=== PATIENT | male | born 1950 | race African-American/Black ===

== ENCOUNTER 2017-07-07 14:14 | Inpatient (IN) | payer MEDICARE, MEDICAID ==
[~2017-07-07] VITALS: Ht 190.5 cm; Wt 91.8 kg
[2017-07-07] MEDS ORDERED: ALBUTEROL (0.083%) 2.5MG/3ML NEB HHN STA (15:32)
[2017-07-07] MEDS ORDERED: IPRATROPIUM BROMIDE (0.02%) 0.5MG/2.5ML NEB HHN STA (15:32)
[2017-07-07] MEDS ORDERED: IPRATROPIUM/ALBUTEROL 0.5-3(2.5)MG/3ML NEB ONE (15:47)
[2017-07-07] MEDS ORDERED: ALBUTEROL (0.5%) 2.5MG/0.5ML NEB HHN ONE (16:00)
[2017-07-07 16:05] LABS: BASOPHILS % 0.7 % (0.0-2.0); EOSINOPHILS % 0.8 % (0.0-5.0); HEMATOCRIT. 39.9 % (42.0-52.0); HEMOGLOBIN. 12.3 g/dL (14.0-18.0); LYMPHOCYTES % 21.6 % (20.0-50.0); MEAN CORPUSCULAR HEMOGLOBIN 21.5 pg (28.0-32.0); MEAN CORPUSCULAR VOLUME 69.6 fL (80.0-94.0); MEAN PLATELET VOLUME 11.4 fl (7.4-10.4); MONOCYTES % 6.9 % (2.0-8.0); PLATELET 129 x1000/uL (130-400); RED BLOOD CELL COUNT 5.73 mill/uL (4.7-6.1); RED CELL DISTRIBUTION WIDTH 16.1 % (11.6-14.6)
[2017-07-07 16:09] LABS: INR 1.1
[2017-07-07] MEDS ORDERED: METHYLPREDNISOLONE SOD SUCC 125 MG/2 ML VIAL IV STA (16:10)
[2017-07-07 16:24] LABS: CARBON DIOXIDE 22 mEq/L (21-32); CHLORIDE 113 mEq/L (98-107)
[2017-07-07 16:30] LABS: TROPONIN I 0.81 ng/mL (0.00-0.04)
[2017-07-07 17:16] LABS: PLATELET ESTIMATE NORMAL
[2017-07-07] MEDS ORDERED: ONDANSETRON HCL 4MG/2ML VIAL IV PRN (18:00)
[2017-07-07] MEDS ORDERED: IPRATROPIUM/ALBUTEROL 0.5-3(2.5)MG/3ML NEB INH PRN (18:00)
[2017-07-07] MEDS ORDERED: MORPHINE SULFATE 2 MG/ML CPJ (NOT FOR IM USE) IV PRN (18:00)
[2017-07-07] MEDS ORDERED: ACETAMINOPHEN 325MG TABLET PO PRN (18:00)
[2017-07-07] MEDS ORDERED: LORAZEPAM 2MG/ML CPJ IV PRN (18:00)
[2017-07-07] MEDS ORDERED: ASPIRIN 325MG EC TABLET PO ONE (18:15)
[2017-07-07] MEDS: CLONIDINE 0.1MG TABLET PO PRN ×2 (18:18→23:28)
[2017-07-07 19:28] VITALS: BP 161/127
[2017-07-07 19:57] VITALS: BP 159/115
[2017-07-07] MEDS: FERROUS SULFATE 325MG TABLET PO SCH (20:04)
[2017-07-07] MEDS: THIAMINE HCL 100MG TABLET PO SCH (20:04)
[2017-07-07] MEDS: FUROSEMIDE 40MG/4ML VIAL IV SCH (20:04)
[2017-07-07] MEDS: ENOXAPARIN 40MG/0.4ML SYR SUBCUT SCH (20:05)
[2017-07-07] MEDS: CEFTRIAXONE 1 G PREMIX 50 ML IV SCH (21:11)
[2017-07-07] MEDS ORDERED: DEXTROSE 50% WATER 50ML SYRINGE IV PRN (21:30)
[2017-07-07 22:00] VITALS: BP 156/106
[2017-07-07] MEDS ORDERED: AZITHROMYCIN 500 MG in DEXT 5% WATER 250 ML IV SCH (22:00)
[2017-07-07] MEDS: METHYLPREDNISOLONE SOD SUCC 125 MG/2 ML VIAL IV SCH (22:09)
[2017-07-07] MEDS: AMLODIPINE 5MG TABLET PO SCH (22:32)
[2017-07-07 23:07] VITALS: BP 161/127
[2017-07-08] VITALS (12 sets, daily range): BP systolic 120–157; BP diastolic 71–119
[2017-07-08 00:05] LABS: CLARITY URINE CLEAR (CLEAR); COLOR URINE YELLOW (YELLOW); GLUCOSE URINE 1+ (NEGATIVE); KETONES URINE NEGATIVE (NEGATIVE); LEUKOCYTE ESTERASE URINE NEGATIVE (NEGATIVE); NITRITE URINE NEGATIVE (NEGATIVE); OCCULT BLOOD URINE NEGATIVE (NEGATIVE); PROTEIN URINE TRACE (NEGATIVE); SPECIFIC GRAVITY URINE 1.009 (1.005-1.030); UROBILINOGEN URINE 0.2 E.U./dL (0.2-1.0)
[2017-07-08 00:25] LABS: *AMPHETAMINES SCREEN URINE NEGATIVE (NEGATIVE); *BARBITURATES SCREEN URINE NEGATIVE (NEGATIVE); *BENZODIAZEPINES SCREEN URINE NEGATIVE (NEGATIVE); *COCAINE SCREEN URINE NEGATIVE (NEGATIVE); CANNABINOID URINE SCREEN NEGATIVE (NEGATIVE); METHADONE URINE SCREEN NEGATIVE (NEGATIVE); OPIATES URINE SCREEN NEGATIVE (NEGATIVE); PHENCYCLIDINE URINE SCREEN NEGATIVE (NEGATIVE)
[2017-07-08 03:03] LABS: TROPONIN I 0.63 ng/mL (0.00-0.04)
[2017-07-08] MEDS: METHYLPREDNISOLONE SOD SUCC 125 MG/2 ML VIAL IV SCH (05:48)
[2017-07-08] MEDS: CLONIDINE 0.1MG TABLET PO PRN ×2 (06:35→14:35)
[2017-07-08] MEDS: BLOOD SUGAR DIAGNOSTIC STRIP TEST SCH ×4 (06:36→20:33)
[2017-07-08 07:46] LABS: BASOPHILS % 0.2 % (0.0-2.0); HEMATOCRIT. 34.9 % (42.0-52.0); LYMPHOCYTES % 9.8 % (20.0-50.0); MEAN CORPUSCULAR HEMOGLOBIN 21.8 pg (28.0-32.0); MEAN CORPUSCULAR VOLUME 69.1 fL (80.0-94.0); MONOCYTES % 1.2 % (2.0-8.0); NEUTROPHILS % 88.8 % (40.0-76.0); RED BLOOD CELL COUNT 5.04 mill/uL (4.7-6.1)
[2017-07-08] MEDS: INSULIN LISPRO 100 UNITS/ML SUBCUT SCH ×4 (08:12→20:32)
[2017-07-08] MEDS: ASPIRIN 81MG TABLET PO SCH (08:14)
[2017-07-08] MEDS: FERROUS SULFATE 325MG TABLET PO SCH (08:14)
[2017-07-08] MEDS: THIAMINE HCL 100MG TABLET PO SCH (08:15)
[2017-07-08] MEDS: AMLODIPINE 5MG TABLET PO SCH (08:15)
[2017-07-08] MEDS: FUROSEMIDE 40MG/4ML VIAL IV SCH (08:15)
[2017-07-08] MEDS: CLOPIDOGREL 75MG TABLET PO SCH (08:15)
[2017-07-08 08:29] LABS: CREATINE KINASE MB FRACTION 5.1 ng/mL (0.5-3.6); PHOSPHORUS 4.8 mg/dL (2.5-4.9)
[2017-07-08 08:35] LABS: TROPONIN I 0.57 ng/mL (0.00-0.04)
[2017-07-08 09:28] LABS: T4 FREE 1.52 ng/dL (0.76-1.46)
[2017-07-08 12:33] LABS: PLATELET 91 x1000/uL (130-400)
[2017-07-08 15:51] LABS: CREATINE KINASE MB FRACTION 5.8 ng/mL (0.5-3.6)
[2017-07-08 15:56] LABS: TROPONIN I 0.55 ng/mL (0.00-0.04)
[2017-07-08] MEDS: METHYLPREDNISOLONE SOD SUCC 40 MG/ML VIAL IV SCH (16:56)
[2017-07-08] MEDS: LOSARTAN POTASSIUM 50 MG TABLET PO SCH (16:56)
[2017-07-08] MEDS: ENOXAPARIN 40MG/0.4ML SYR SUBCUT SCH (20:00)
[2017-07-08] MEDS: CARVEDILOL 3.125 MG TABLET PO SCH (20:33)
[2017-07-08] MEDS: CEFTRIAXONE 1 G PREMIX 50 ML IV SCH (21:59)
[2017-07-08] MEDS: AZITHROMYCIN 500 MG in DEXT 5% WATER 250 ML IV SCH (23:00)
[2017-07-08 23:21] LABS: CREATINE KINASE MB FRACTION 4.6 ng/mL (0.5-3.6)
[2017-07-08 23:26] LABS: TROPONIN I 0.46 ng/mL (0.00-0.04)
[2017-07-09] VITALS (14 sets, daily range): BP systolic 114–153; BP diastolic 76–105
[2017-07-09] MEDS: IPRATROPIUM/ALBUTEROL 0.5-3(2.5)MG/3ML NEB HHN SCH ×4 (01:13→21:19)
[2017-07-09] MEDS: METHYLPREDNISOLONE SOD SUCC 40 MG/ML VIAL IV SCH ×2 (06:20→17:11)
[2017-07-09] MEDS: BLOOD SUGAR DIAGNOSTIC STRIP TEST SCH ×4 (06:21→20:46)
[2017-07-09] MEDS: INSULIN LISPRO 100 UNITS/ML SUBCUT SCH ×4 (06:58→21:07)
[2017-07-09 07:56] LABS: HEMOGLOBIN. 11.1 g/dL (14.0-18.0); MEAN CORPUSCULAR HEMOGLOBIN 21.3 pg (28.0-32.0); MEAN CORPUSCULAR VOLUME 69.1 fL (80.0-94.0); MEAN PLATELET VOLUME 10.6 fl (7.4-10.4); PLATELET 81 x1000/uL (130-400); RED CELL DISTRIBUTION WIDTH 15.7 % (11.6-14.6)
[2017-07-09 08:33] LABS: T4 FREE 1.53 ng/dL (0.76-1.46)
[2017-07-09 08:38] LABS: TROPONIN I 0.44 ng/mL (0.00-0.04)
[2017-07-09 08:45] LABS: CREATINE KINASE MB FRACTION 4.2 ng/mL (0.5-3.6)
[2017-07-09] MEDS: FUROSEMIDE 40MG/4ML VIAL IV SCH (08:54)
[2017-07-09] MEDS: CLOPIDOGREL 75MG TABLET PO SCH (08:55)
[2017-07-09] MEDS: FERROUS SULFATE 325MG TABLET PO SCH (08:55)
[2017-07-09] MEDS: ASPIRIN 81MG TABLET PO SCH (08:55)
[2017-07-09] MEDS: THIAMINE HCL 100MG TABLET PO SCH (08:55)
[2017-07-09] MEDS: CARVEDILOL 3.125 MG TABLET PO SCH ×2 (08:56→20:42)
[2017-07-09] MEDS: LOSARTAN POTASSIUM 50 MG TABLET PO SCH (08:56)
[2017-07-09] MEDS ORDERED: ASPIRIN 81MG TABLET PO SCH (09:00)
[2017-07-09 10:26] LABS: PLATELET ESTIMATE DECREASED
[2017-07-09] MEDS ORDERED: FUROSEMIDE 40MG/4ML VIAL IVP NR (16:15)
[2017-07-09] MEDS: DOCUSATE SODIUM 100MG CAPSULE PO SCH (17:11)
[2017-07-09] MEDS: ENOXAPARIN 40MG/0.4ML SYR SUBCUT SCH (20:42)
[2017-07-09] MEDS: CLONIDINE 0.1MG TABLET PO PRN (21:30)
[2017-07-09] MEDS: CEFTRIAXONE 1 G PREMIX 50 ML IV SCH (21:30)
[2017-07-09] MEDS: AZITHROMYCIN 500 MG in DEXT 5% WATER 250 ML IV SCH (22:28)
[2017-07-10] VITALS (12 sets, daily range): BP systolic 118–149; BP diastolic 64–103
[2017-07-10] MEDS: IPRATROPIUM/ALBUTEROL 0.5-3(2.5)MG/3ML NEB HHN SCH ×3 (01:55→20:09)
[2017-07-10] MEDS: CLONIDINE 0.1MG TABLET PO PRN (04:03)
[2017-07-10] MEDS: METHYLPREDNISOLONE SOD SUCC 40 MG/ML VIAL IV SCH ×2 (05:43→17:59)
[2017-07-10] MEDS: BLOOD SUGAR DIAGNOSTIC STRIP TEST SCH ×4 (06:12→20:07)
[2017-07-10 06:59] LABS: BASOPHILS % 0.1 % (0.0-2.0); HEMATOCRIT. 34.9 % (42.0-52.0); HEMOGLOBIN. 10.8 g/dL (14.0-18.0); LYMPHOCYTES % 4.9 % (20.0-50.0); MEAN CORPUSCULAR HEMOGLOBIN 21.4 pg (28.0-32.0); MEAN CORPUSCULAR VOLUME 69.3 fL (80.0-94.0); MEAN PLATELET VOLUME 10.6 fl (7.4-10.4); MONOCYTES % 1.8 % (2.0-8.0); NEUTROPHILS % 93.2 % (40.0-76.0); PLATELET 86 x1000/uL (130-400); RED BLOOD CELL COUNT 5.03 mill/uL (4.7-6.1); RED CELL DISTRIBUTION WIDTH 15.8 % (11.6-14.6)
[2017-07-10] MEDS: INSULIN LISPRO 100 UNITS/ML SUBCUT SCH ×4 (08:03→20:07)
[2017-07-10] MEDS: CLOPIDOGREL 75MG TABLET PO SCH (08:07)
[2017-07-10] MEDS: FERROUS SULFATE 325MG TABLET PO SCH (08:07)
[2017-07-10] MEDS: THIAMINE HCL 100MG TABLET PO SCH (08:07)
[2017-07-10] MEDS: ASPIRIN 81MG TABLET PO SCH (08:07)
[2017-07-10] MEDS: DOCUSATE SODIUM 100MG CAPSULE PO SCH ×2 (08:07→17:54)
[2017-07-10] MEDS: LOSARTAN POTASSIUM 50 MG TABLET PO SCH (08:08)
[2017-07-10] MEDS: CARVEDILOL 3.125 MG TABLET PO SCH ×2 (08:08→20:04)
[2017-07-10] MEDS: FUROSEMIDE 40MG/4ML VIAL IV SCH (08:08)
[2017-07-10] MEDS: ENOXAPARIN 40MG/0.4ML SYR SUBCUT SCH (19:38)
[2017-07-10] MEDS: CEFTRIAXONE 1 G PREMIX 50 ML IV SCH (22:23)
[2017-07-10] MEDS: AZITHROMYCIN 500 MG in DEXT 5% WATER 250 ML IV SCH (23:09)
[2017-07-11] VITALS (12 sets, daily range): BP systolic 113–169; BP diastolic 63–117
[2017-07-11] MEDS: IPRATROPIUM/ALBUTEROL 0.5-3(2.5)MG/3ML NEB HHN SCH ×4 (01:31→20:43)
[2017-07-11] MEDS: METHYLPREDNISOLONE SOD SUCC 40 MG/ML VIAL IV SCH (06:46)
[2017-07-11] MEDS: BLOOD SUGAR DIAGNOSTIC STRIP TEST SCH ×4 (06:47→20:14)
[2017-07-11] MEDS: INSULIN LISPRO 100 UNITS/ML SUBCUT SCH ×4 (07:29→20:18)
[2017-07-11 08:19] LABS: HEMATOCRIT. 35.9 % (42.0-52.0); HEMOGLOBIN. 11.2 g/dL (14.0-18.0); MEAN CORPUSCULAR HEMOGLOBIN 21.5 pg (28.0-32.0); MEAN CORPUSCULAR VOLUME 68.9 fL (80.0-94.0); RED BLOOD CELL COUNT 5.22 mill/uL (4.7-6.1); RED CELL DISTRIBUTION WIDTH 15.7 % (11.6-14.6)
[2017-07-11] MEDS: CARVEDILOL 3.125 MG TABLET PO SCH ×2 (08:40→20:19)
[2017-07-11] MEDS: DOCUSATE SODIUM 100MG CAPSULE PO SCH ×2 (08:40→17:32)
[2017-07-11] MEDS: THIAMINE HCL 100MG TABLET PO SCH (08:40)
[2017-07-11] MEDS: LOSARTAN POTASSIUM 50 MG TABLET PO SCH (08:40)
[2017-07-11] MEDS: FERROUS SULFATE 325MG TABLET PO SCH (08:40)
[2017-07-11] MEDS: ASPIRIN 81MG TABLET PO SCH (08:40)
[2017-07-11] MEDS: CLOPIDOGREL 75MG TABLET PO SCH (08:40)
[2017-07-11] MEDS: FUROSEMIDE 40MG/4ML VIAL IV SCH (08:41)
[2017-07-11 09:03] LABS: CARBON DIOXIDE 30 mEq/L (21-32); CHLORIDE 102 mEq/L (98-107)
[2017-07-11 11:33] LABS: PLATELET ESTIMATE DECREASED
[2017-07-11 11:34] LABS: MEAN PLATELET VOLUME 12.3 fl (7.4-10.4); PLATELET 95 x1000/uL (130-400)
[2017-07-11] MEDS: CLONIDINE 0.1MG TABLET PO PRN (17:32)
[2017-07-11] MEDS: ENOXAPARIN 40MG/0.4ML SYR SUBCUT SCH (19:38)
[2017-07-11] MEDS: CEFTRIAXONE 1 G PREMIX 50 ML IV SCH (20:19)
[2017-07-11] MEDS: AZITHROMYCIN 500 MG in DEXT 5% WATER 250 ML IV SCH (21:35)
[2017-07-12] VITALS (15 sets, daily range): BP systolic 124–161; BP diastolic 74–106
[2017-07-12] MEDS: IPRATROPIUM/ALBUTEROL 0.5-3(2.5)MG/3ML NEB HHN SCH ×3 (01:23→13:28)
[2017-07-12] MEDS: BLOOD SUGAR DIAGNOSTIC STRIP TEST SCH ×3 (06:17→17:12)
[2017-07-12] MEDS: CLOPIDOGREL 75MG TABLET PO SCH (09:00)
[2017-07-12] MEDS: ASPIRIN 81MG TABLET PO SCH (09:00)
[2017-07-12] MEDS ORDERED: PREDNISONE 20MG TABLET PO SCH (09:00)
[2017-07-12] MEDS ORDERED: LOSARTAN POTASSIUM 50 MG TABLET PO SCH (09:00)
[2017-07-12] MEDS: FUROSEMIDE 40MG/4ML VIAL IV SCH (09:24)
[2017-07-12] MEDS: FERROUS SULFATE 325MG TABLET PO SCH (09:24)
[2017-07-12] MEDS: INSULIN LISPRO 100 UNITS/ML SUBCUT SCH ×3 (09:24→17:18)
[2017-07-12] MEDS: DOCUSATE SODIUM 100MG CAPSULE PO SCH ×2 (09:24→17:17)
[2017-07-12] MEDS: THIAMINE HCL 100MG TABLET PO SCH (09:25)
[2017-07-12] MEDS: CARVEDILOL 3.125 MG TABLET PO SCH (09:25)
[2017-07-12 09:43] LABS: BASOPHILS % 0.4 % (0.0-2.0); EOSINOPHILS % 0.2 % (0.0-5.0); HEMATOCRIT. 35.9 % (42.0-52.0); HEMOGLOBIN. 11.3 g/dL (14.0-18.0); LYMPHOCYTES % 17.8 % (20.0-50.0); MEAN CORPUSCULAR HEMOGLOBIN 21.7 pg (28.0-32.0); MEAN CORPUSCULAR VOLUME 68.9 fL (80.0-94.0); MONOCYTES % 4.7 % (2.0-8.0); NEUTROPHILS % 76.9 % (40.0-76.0); RED CELL DISTRIBUTION WIDTH 15.7 % (11.6-14.6)
[2017-07-12 11:05] LABS: PLATELET ESTIMATE DECREASED
[2017-07-12 11:06] LABS: MEAN PLATELET VOLUME 10.5 fl (7.4-10.4); PLATELET 78 x1000/uL (130-400)
[2017-07-12] MEDS ORDERED: POTASSIUM CHLORIDE 20MEQ TABLET SR PO SCH (12:00)
[2017-07-13] MEDS ORDERED: LOSARTAN POTASSIUM 100 MG TABLET PO SCH (09:00)
== END 2017-07-12 19:10 | DRG 871 ==
LOC: ER 15:10 → 3WST 17:18 → ENRESERV 17:18
PROVIDERS: ADMIT Internal Medicine Nephrology; ATTEND Internal Medicine Nephrology
DX: A41.9 Sepsis, unspecified organism (principal); J96.00 Acute respiratory failure, unspecified whether with hypoxia or hypercapnia; N17.9 Acute kidney failure, unspecified; I50.23 Acute on chronic systolic (congestive) heart failure; J18.9 Pneumonia, unspecified organism; I11.0 Hypertensive heart disease with heart failure; I42.0 Dilated cardiomyopathy; E44.1 Mild protein-calorie malnutrition; I13.0 Hypertensive heart and chronic kidney disease with heart failure and stage 1 through stage 4 chronic kidney disease, or unspecified chronic kidney disease; F03.90 Unspecified dementia, unspecified severity, without behavioral disturbance, psychotic disturbance, mood disturbance, and anxiety; J44.0 Chronic obstructive pulmonary disease with (acute) lower respiratory infection; J44.1 Chronic obstructive pulmonary disease with (acute) exacerbation; E11.22 Type 2 diabetes mellitus with diabetic chronic kidney disease; D69.6 Thrombocytopenia, unspecified; D64.9 Anemia, unspecified; E78.5 Hyperlipidemia, unspecified; F17.210 Nicotine dependence, cigarettes, uncomplicated; I27.2 Other secondary pulmonary hypertension; N18.3 Chronic kidney disease, stage 3 (moderate); R79.89 Other specified abnormal findings of blood chemistry; Z86.73 Personal history of transient ischemic attack (TIA), and cerebral infarction without residual deficits; Z68.25 Body mass index [BMI] 25.0-25.9, adult
CPT/HCPCS: 36415; 70450; 71010; 76770; 78582; 80048; 80053; 80061; 80076; 80305; 81001; 81003; 82550; 82553; 82962; 83036; 83735; 83880; 84100; 84439; 84443; 84484; 85025; 85379; 85610; 93005; 93306; 93970; 94640; 94664; 96374; 97162; 97530; 99285; A6261; A9558; J0456; J0696; J1650; J1815; J1940; J2405; J2920; J2930; J7040; J7050; J7060; J7512; J7611; J7620